=== PATIENT | female | born 1995 | race Caucasian/White ===

== ENCOUNTER 2017-09-28 22:42 | Emergency (ER) | payer OTHER, SELFPAY ==
[2017-09-29 00:02] LABS: Absolute Lymphocytes (CBC) 2.1 K/uL (0.7-4.9); Absolute Monocytes 0.4 K/uL (0.1-1.3); Absolute Neutrophil 4.7 K/uL (1.8-8.0); Eosinophils % 5.5 % (0-4.4); Hematocrit 39.3 % (36.0-45.0); Lymphocytes % 27.4 % (15.3-44.8); MCH 26.7 pg (27.0-35.0); MCV 81.9 fL (80-100); MPV 9.9 fL (7.6-11.3); Monocytes % 5.2 % (3.3-12.3)
[2017-09-29 00:17] LABS: Potassium 3.7 mEq/L (3.6-5.0)
[2017-09-29 00:59] LABS: HCG, Quantitative 610.4 mIU/mL (<5)
--- NOTE | 2017-09-29 02:37 | EDPHYS ---
Physician Documentation [facility] Name: Rehana Shaffer Age: 21 yrs Sex: Female : 1995 Arrival Date: 09/28/2017 Time: 22:46 Bed 24 Private MD: ED Physician Leonides Wong HPI: 09/28 23:07 This 21 yrs old Female presents to ER via Unassigned with complaints of ma2 Abdominal Cramping. 23:07 The patient presents to the emergency department with abdominal pain, of the suprapubic ma2 area, right lower quadrant and left lower quadrant, that started today, described as. The estimated gestational age is 5 weeks. course: care: none. Associated signs and symptoms: Pertinent negatives: chest pain, dysuria, nausea, shortness of breath, vaginal bleeding, vaginal discharge, vomiting. The patient has experienced similar episodes in the past. 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 - Social history:: Patient uses Patient/guardian denies using alcohol, street drugs, The patient lives with family, Smoking status: Patient/guardian denies using tobacco, Patient/guardian denies using alcohol, street drugs. ROS: 23:07 Constitutional: Negative for fever, chills, and weight loss. ma2 23:07 Abdomen/GI: Positive for abdominal pain. 23:07 All other systems are negative. Exam: 23:07 Constitutional: This is a well developed, well nourished patient who is awake, alert, ma2 and in no acute distress. Neck: Trachea midline, no thyromegaly or masses palpated, and no cervical lymphadenopathy. Supple, full range of motion without nuchal rigidity, or vertebral point tenderness. No Meningismus. Chest/axilla: Normal chest wall appearance and motion. Nontender with no deformity. No lesions are appreciated. Cardiovascular: Regular rate and rhythm with a normal S1 and S2. No gallops, murmurs, or rubs. Normal PMI, no JVD. No pulse deficits. Respiratory: Lungs have equal breath sounds bilaterally, clear to auscultation and percussion. No rales, rhonchi or wheezes noted. No increased work of breathing, no retractions or nasal flaring. Abdomen/GI: Soft, non-tender, with normal bowel sounds. No distension or tympany. No guarding or rebound. No evidence of tenderness throughout. Vital Signs: 23:09 BP 96 / 68; Pulse 93; Resp 14; Temp 98.0(O); Pulse Ox 100% on R/A; Weight 86.18 kg (R); ao Height 5 ft. 2 in. (157.48 cm); Pain 0/10; 23:42 Pulse 86; Resp 18; Pulse Ox 100% ; tl3 09/29 01:01 BP 101 / 62; Pulse 87; Resp 18; Pulse Ox 100% on R/A; tl3 02:15 BP 109 / 60; Pulse 78; Resp 17; Pulse Ox 100% on R/A; rk2 09/28 23:09 Body Mass Index 34.75 (86.18 kg, 157.48 cm) ao MDM: 09/28 22:58 Patient medically screened. ma2 23:07 Differential diagnosis: delivery of , ectopic , . ma2 09/29 02:33 Data reviewed: vital signs, nurses notes, EMS record, lab test result(s), radiologic ma2 studies. Test interpretation: by ED physician or midlevel provider: ECG, plain radiologic studies. Counseling: I had a detailed discussion with the patient and/or guardian regarding: the historical points, exam findings, and any diagnostic results supporting the discharge/admit diagnosis, the presence of at least one elevated blood pressure reading (>120/80) during this emergency department visit, the need for outpatient follow up. Medical screen evaluation completed. EMTALA emergency medical condition absent. 02:33 ED course: US showing single intra uterine sac no pole no definite IUP, no ma2 adnexal cysts or masses, no UTI . ED course: will need 48 hours bhcg . 09/28 23:07 Order name: Quantitative Hcg; Complete Time: 01:48 ma2 09/28 23:07 Order name: Abo/rh Typing; Complete Time: :48 ma2 09/28 23:07 Order name: Basic Metabolic Panel; Complete Time: 01:48 sd2 09/28 23:07 Order name: CBC with Diff; Complete Time: 00:04 sd2 09/28 23:58 Order name: Urine Dipstick--Ancillary (enter results) [facility] 09/28 23:07 Order name: Urine Test (obtain specimen); Complete Time: 00:24 sd2 09/28 23:07 Order name: IV Saline Lock; Complete Time: 00:24 sd2 09/28 23:07 Order name: Labs collected and sent; Complete Time: 00:24 ma2 09/28 23:58 Order name: Urine --Ancillary (enter results) [facility] 09/29 01:46 Order name: Transvaginal OB ED[facility] 09/28 23:07 Order name: NPO; Complete Time: 00:24 sd2 09/28 23:07 Order name: Urine Dipstick-Ancillary (obtain specimen); Complete Time: 00:24 ma2 Administered Medications: No medications were administered Disposition: 09/29/17 02:36 Discharged to Home. Impression: Abdominal and pelvic pain. - Condition is Stable. - Medication Reconciliation Form, Thank You Letter, Antibiotic Education, Prescription Opioid Use form. - Follow up: Private Physician; When: 48 Hours; Reason: Continuance of care. - Problem is new. - Symptoms are unchanged. - Notes: follow up with your doctor in 2 days for blood test, serial HCG, to rule out ectopic Signatures: Dispatcher [employer] [facility] Gamaliel Gaona RN Leonides Sanchez MD MD ma2 Carley Kay RN RN rk2 Corrections: (The following items were deleted from the chart) 01:47 00:50 OB Complete+US.RAD.BRZ ordered. [facility] 02:48 02:36 09/29/2017 02:36 Discharged to Home. Impression: Abdominal and pelvic pain. rk2 Condition is Stable. Forms are Medication Reconciliation Form, Thank You Letter, Antibiotic Education, Prescription Opioid Use. Follow up: Private Physician; When: 48 Hours; Reason: Continuance of care. Problem is new. Symptoms are unchanged. ma2
--- NOTE | 2017-09-29 02:37 | ER ---
Nurse's Notes [facility] Name: Rehana Shaffer Age: 21 yrs Sex: Female : 1995 Arrival Date: 09/28/2017 Time: 22:46 Bed 24 Private MD: Diagnosis: Abdominal and pelvic pain Presentation: 09/28 23:06 Presenting complaint: Patient states: "I had done two test and they are ao positive. My last period was 08/21/2017. Today I started cramping like before when I had a miscarriage." Patient denies vaginal discharge or bleeding. Transition of care: patient was not received from another setting of care. Onset of symptoms is unknown. Initial Sepsis Screen: Does the patient meet any 2 criteria? No. Patient's initial sepsis screen is negative. Does the patient have a suspected source of infection? No. Patient's initial sepsis screen is negative. Care prior to arrival: None. 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 - Social history:: Patient uses Patient/guardian denies using alcohol, street drugs, The patient lives with family, Smoking status: Patient/guardian denies using tobacco, Patient/guardian denies using alcohol, street drugs. Screenin:18 Abuse screen: Denies threats or abuse. Nutritional screening: No deficits noted. tl3 Tuberculosis screening: No symptoms or risk factors identified. Fall Risk None identified. Assessment: 23:18 General: Appears in no apparent distress. comfortable, well groomed, well developed, tl3 well nourished, Behavior is calm, cooperative, appropriate for age. Pain: Denies pain. Neuro: Level of Consciousness is awake, alert, obeys commands, Oriented to person, place, time, situation, Appropriate for age. Cardiovascular: No deficits noted. Heart tones S1 S2 present Patient's skin is warm and dry. Respiratory: Airway is patent Trachea midline Respiratory effort is even, unlabored, Respiratory pattern is regular, symmetrical, Breath sounds are clear bilaterally. GI: Bowel sounds present X 4 quads. Abd is soft and non tender. : Urine is clear. EENT: No signs and/or symptoms were reported regarding the EENT system. Derm: No signs and/or symptoms reported regarding the dermatologic system. Musculoskeletal: No signs and/or symptoms reported regarding the musculoskeletal system. 23:42 Reassessment: Patient appears in no apparent distress at this time. No changes from tl3 previously documented assessment. Patient and/or family updated on plan of care and expected duration. Pain level reassessed. Patient is alert, oriented x 3, equal unlabored respirations, skin warm/dry/pink. 09/29 01:01 Reassessment: Patient appears in no apparent distress at this time. No changes from tl3 previously documented assessment. Patient and/or family updated on plan of care and expected duration. Pain level reassessed. Patient is alert, oriented x 3, equal unlabored respirations, skin warm/dry/pink. pt in n distress, awaiting ultra sound. Vital Signs: 09/28 23:09 BP 96 / 68; Pulse 93; Resp 14; Temp 98.0(O); Pulse Ox 100% on R/A; Weight 86.18 kg (R); ao Height 5 ft. 2 in. (157.48 cm); Pain 0/10; 23:42 Pulse 86; Resp 18; Pulse Ox 100% ; tl3 09/29 01:01 BP 101 / 62; Pulse 87; Resp 18; Pulse Ox 100% on R/A; tl3 02:15 BP 109 / 60; Pulse 78; Resp 17; Pulse Ox 100% on R/A; rk2 09/28 23:09 Body Mass Index 34.75 (86.18 kg, 157.48 cm) ao ED Course: 09/28 22:46 Patient arrived in ED. ds1 22:58 Leonides Wong MD is Attending Physician. ma2 23:08 Triage completed. ao 23:08 Arm band placed on right wrist. Patient placed in an exam room, on a stretcher, on ao tool liaison, on pulse oximetry, Patient notified of wait time. 23:18 Jeny Amezquita, DOTTY is Primary Nurse. tl3 23:18 No apparent distress. Resting quietly. Awaiting lab results. tl3 23:18 Patient has correct armband on for positive identification. Bed in low position. Call tl3 light in reach. Side rails up X 1. Pulse ox on. NIBP on. 23:18 No provider procedures requiring assistance completed. tl3 23:42 Inserted saline lock: 20 gauge in left forearm, using aseptic technique. tl3 09/29 00:24 Urine Dipstick--Ancillary (enter results) Sent. tl3 00:24 Urine --Ancillary (enter results) Sent. tl3 02:33 Transvaginal OB Sent. rk2 02:34 Ultrasound completed. Patient tolerated well. Notified ED Physician Judith. sg3 02:37 Transvaginal OB In Process Unspecified. EDMS 02:48 IV discontinued. rk2 Administered Medications: No medications were administered Outcome: 02:36 Discharge ordered by . ma2 02:47 Discharged to home ambulatory. rk2 02:47 Condition: good 02:47 Discharge instructions given to patient. 02:48 Patient left the ED. rk2 Signatures: Dispatcher [employer] EDKY Stefanie Booth ds1 Gamaliel Gaona, RN RN Thania Jean-Baptiste sg3 Leonides Wong MD MD ma2 Carley Kay RN RN rk2 Jeny Amezquita RN RN tl3
[2017-09-29 03:01] VITALS: TEMP 98; O2SAT 100
[2017-09-29 03:05] VITALS: BP 109/60
--- NOTE | 2017-09-29 12:25 | RAD REPORT ---
EXAM DESCRIPTION: US - Transvaginal OB - 09/29/2017 2:37 am CLINICAL HISTORY: Pelvic pain. COMPARISON: None. FINDINGS: The uterus is normal in size, shape and echotexture. Endometrium is thickened with a tiny cystic area in the fundal endometrium measuring 5 mm. This may represent a very early IUP. Both ovaries are normal in size, shape and echotexture. The right ovary measures 3.2 x 2.7 cm. The left ovary measures 3.5 x 2.4 cm. No ovarian or parovarian lesions. No adnexal masses. Normal Doppler blood flow was demonstrated to both ovaries. IMPRESSION: Small gestational sac is likely present within the endometrial fundus.Advise a follow-up ultrasound in 10-12 days.
== END 2017-09-29 02:48 | disposition home or self-care (01) ==
LOC: ER 22:42
DX: R10.2 Pelvic and perineal pain (principal); Z88.0 Allergy status to penicillin; Z88.8 Allergy status to other drugs, medicaments and biological substances; Z91.040 Latex allergy status
CPT/HCPCS: 36415; 76817; 80048; 84702; 85025; 86900; 86901; 99284

== ENCOUNTER 2018-12-05 21:42 | Emergency (ER) | payer OTHER, SELFPAY ==
--- NOTE | 2018-12-06 00:28 | ER ---
Nurse's Notes [facility] Name: Rehana Arnett Age: 23 yrs Sex: Female : 1995 Arrival Date: 12/05/2018 Time: 21:47 Bed 8 Private MD: Diagnosis: Otitis externa in other diseases classified elsewhere, left ear Presentation: 12/05 22:14 Presenting complaint: Patient states: "It started out as an ear infection, I had a aj1 panic attack that lasted 2 and a half hours, and I think I might be , I have that kenneth in my arm but my belly is swelling and my boobs are bigger" Patient states that she has been taking tests and they have been negative. Reports pain to the both ears for the past 3 days, denies fever. Transition of care: patient was not received from another setting of care. Onset of symptoms was December 05, 2018. Risk Assessment: Do you want to hurt yourself or someone else? Patient reports no desire to harm self or others. Initial Sepsis Screen: Does the patient meet any 2 criteria? HR > 90 bpm. No. Patient's initial sepsis screen is negative. Does the patient have a suspected source of infection? No. Patient's initial sepsis screen is negative. Care prior to arrival: None. 22:14 Method Of Arrival: Ambulatory aj1 22:14 Acuity: GERMANIA 4 aj1 Triage Assessment: 22:17 General: Appears in no apparent distress. uncomfortable, Behavior is calm, cooperative, aj1 appropriate for age. Pain: Complains of pain in right ear and left ear Pain currently is 4 out of 10 on a pain scale. EENT: Reports bilateral ear pain. Neuro: Level of Consciousness is awake, alert, obeys commands. Cardiovascular: Patient's skin is warm and dry. Respiratory: Airway is patent Respiratory effort is even, unlabored, Respiratory pattern is regular, symmetrical. 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 - Social history:: Smoking status: Patient/guardian denies using tobacco. - Ebola Screening: : Patient denies travel to an Ebola-affected area in the 21 days before illness onset. Screenin:06 Abuse screen: Denies threats or abuse. Nutritional screening: No deficits noted. jd3 Tuberculosis screening: No symptoms or risk factors identified. Fall Risk Ambulatory Aid- None/Bed Rest/Nurse Assist (0 pts). Gait- Normal/Bed Rest/Wheelchair (0 pts) Mental Status- Oriented to own ability (0 pts). Total Patel Fall Scale indicates No Risk (0-24 pts). Assessment: 23:03 General: Appears in no apparent distress. uncomfortable, Behavior is calm, cooperative, jd3 appropriate for age. Pain: Complains of pain in left ear Pain does not radiate. Quality of pain is described as aching. Neuro: Level of Consciousness is awake, alert, obeys commands, Oriented to person, place, time, situation. Cardiovascular: Capillary refill < 3 seconds Patient's skin is warm and dry. Respiratory: Airway is patent Respiratory effort is even, unlabored, Respiratory pattern is regular, symmetrical, Denies cough, shortness of breath. GI: Reports nausea, recent weight gain. : No signs and/or symptoms were reported regarding the genitourinary system. EENT: Ear canal w/ drainage noted from left ear Reports pain in left ear. Derm: Skin is intact, Skin is dry, Skin is normal, Skin temperature is warm. Musculoskeletal: Circulation, motion, and sensation intact. Range of motion: intact in all extremities. 12/06 00:00 Reassessment: Patient appears in no apparent distress at this time. No changes from jd3 previously documented assessment. Patient and/or family updated on plan of care and expected duration. Pain level reassessed. Patient is alert, oriented x 3, equal unlabored respirations, skin warm/dry/pink. awaiting results and disposition. 00:29 Reassessment: Patient appears in no apparent distress at this time. Patient and/or jd3 family updated on plan of care and expected duration. Pain level reassessed. Patient is alert, oriented x 3, equal unlabored respirations, skin warm/dry/pink. reported understanding of discharge instructions. Vital Signs: 12/05 22:17 BP 127 / 68; Pulse 88; Resp 18; Temp 98.3; Pulse Ox 100% on R/A; Weight 86.18 kg (R); aj1 Height 5 ft. 2 in. (157.48 cm) (R); Pain 4/10; 12/06 00:30 Pulse 87; Resp 16 S; Pulse Ox 100% on R/A; Pain 4/10; jd3 12/05 22:17 Body Mass Index 34.75 (86.18 kg, 157.48 cm) aj1 ED Course: 12/05 21:47 Patient arrived in ED. es 22:16 Triage completed. aj1 22:17 Arm band placed on Patient placed in an exam room. aj1 22:22 Saurav Randall PA is PHCP. cp 22:22 Carlos Graves MD is Attending Physician. cp 22:25 Jose Phelps, RN is Primary Nurse. jd3 23:02 Strep Sent. jd3 23:07 Patient has correct armband on for positive identification. Bed in low position. Call jd3 light in reach. Side rails up X 1. 12/06 00:29 No provider procedures requiring assistance completed. Patient did not have IV access jd3 during this emergency room visit. Administered Medications: No medications were administered Outcome: 00:23 Discharge ordered by MD. cp 00:29 Discharged to home ambulatory, with family. jd3 00:29 Condition: stable 00:29 Discharge instructions given to patient, family, Instructed on discharge instructions, follow up and referral plans. medication usage, Demonstrated understanding of instructions, follow-up care, medications, Prescriptions given X 1. 00:30 Patient left the ED. jd3 Signatures: Makenzie Nevarez, RN RN aj1 Lindsey Steward Saurav Randall PA PA Jose Padilla, RN RN jd3
--- NOTE | 2018-12-06 00:29 | EDPHYS ---
Physician Documentation [facility] Name: Rehana Arnett Age: 23 yrs Sex: Female : 1995 Arrival Date: 12/05/2018 Time: 21:47 Bed 8 Private MD: ED Physician Carlos Graves HPI: 12/05 22:50 This 23 yrs old Female presents to ER via Ambulatory with complaints of Ear cp Pain. 22:50 The patient presents with pain, that is acute. The complaints affect the left ear. cp 22:50 Onset: The symptoms/episode began/occurred 3 day(s) ago. cp 22:50 Associated signs and symptoms: Pertinent positives: sore throat, Pertinent negatives: cp cough, rhinorrhea, sinus trouble. Severity of symptoms: in the emergency department the symptoms are unchanged despite home interventions. Patient concerned about possibility of being and wound like test. 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 - Social history:: Smoking status: Patient/guardian denies using tobacco. - Ebola Screening: : Patient denies travel to an Ebola-affected area in the 21 days before illness onset. ROS: 23:00 Constitutional: Negative for chills, fever, poor PO intake. cp 23:00 Eyes: Negative for injury, pain, redness, and discharge. cp 23:00 ENT: Positive for ear pain, sore throat, Negative for drainage from ear(s), sinus congestion, sinus pain, difficulty swallowing, difficulty handling secretions. 23:00 Neck: Negative for pain with movement, pain at rest, stiffness. 23:00 Respiratory: Negative for cough, shortness of breath, wheezing. 23:00 Abdomen/GI: Negative for vomiting, diarrhea, constipation. 23:00 Skin: Negative for rash. 23:00 Neuro: Negative for altered mental status, headache, weakness. 23:00 All other systems are negative. Exam: 23:05 Constitutional: The patient appears in no acute distress, alert, awake, non-toxic, well cp developed, well nourished. 23:05 Head/Face: Normocephalic, atraumatic. cp 23:05 Eyes: Periorbital structures: appear normal, Conjunctiva: normal, no exudate, no injection, Lids and lashes: appear normal, bilaterally. 23:05 ENT: External ear(s): pain with movement, that is mild, of the left ear canal, Ear canal(s): swelling, that is minimal, of the left canal, TM's: dullness, bilaterally, Examination of the other ear shows no obvious abnormality, Nose: is normal, Mouth: Lips: moist, Oral mucosa: pink and intact, moist, Posterior pharynx: Airway: no evidence of obstruction, patent, Tonsils: no enlargement, no exudate, swelling, is not appreciated, erythema, that is mild, exudate, is not appreciated. 23:05 Neck: ROM/movement: is normal, is supple, without pain, no range of motions limitations, no meningismus, no nuchal rigidity. 23:05 Chest/axilla: Inspection: normal. 23:05 Cardiovascular: Rate: normal. 23:05 Respiratory: the patient does not display signs of respiratory distress, Respirations: normal, no use of accessory muscles, no retractions, no splinting, no tachypnea, labored breathing, is not present. 23:05 Skin: no rash present. Vital Signs: 22:17 BP 127 / 68; Pulse 88; Resp 18; Temp 98.3; Pulse Ox 100% on R/A; Weight 86.18 kg (R); aj1 Height 5 ft. 2 in. (157.48 cm) (R); Pain 4/10; 12/06 00:30 Pulse 87; Resp 16 S; Pulse Ox 100% on R/A; Pain 4/10; jd3 12/05 22:17 Body Mass Index 34.75 (86.18 kg, 157.48 cm) aj1 MDM: 12/05 22:22 Patient medically screened. cp 23:00 Differential diagnosis: otitis media, otitis externa, ruptured TM, sinusitis, strep cp throat. 12/06 00:22 Data reviewed: vital signs, nurses notes, lab test result(s). cp 00:22 Counseling: I had a detailed discussion with the patient and/or guardian regarding: the cp historical points, exam findings, and any diagnostic results supporting the discharge/admit diagnosis, lab results, to return to the emergency department if symptoms worsen or persist or if there are any questions or concerns that arise at home. 12/05 22:56 Order name: Strep cp 12/05 23:05 Order name: Urine Dipstick--Ancillary (enter results) [facility] 12/05 22:45 Order name: Urine Dipstick-Ancillary (obtain specimen); Complete Time: 22:59 [facility] 12/05 22:45 Order name: Urine Test (obtain specimen); Complete Time: 22:59 [facility] 12/05 23:05 Order name: Urine --Ancillary (enter results) [facility] 12/06 00:06 Order name: Throat Culture EDMS Administered Medications: No medications were administered Disposition: 12/06/18 00:23 Discharged to Home. Impression: Otitis externa in other diseases classified elsewhere, left ear. - Condition is Stable. - Discharge Instructions: Otitis Externa. - Prescriptions for Cortisporin- TC 3.3-3-10-0.5 mg/mL Otic Suspension - instill 4 drop by OTIC route every 6 hours; 1 bottle. - Medication Reconciliation Form, Thank You Letter, Antibiotic Education, Prescription Opioid Use form. - Follow up: Private Physician; When: 2 - 3 days; Reason: Worsening of condition. - Problem is new. - Symptoms have improved. Addendum: 12/07/2018 10:00 Co-signature as Attending Physician, Carlos Graves MD I agree with the assessment and k dr plan of care. Signatures: Dispatcher [employer] EDMS Makenzie Nevarez RN RN aj1 Carlos Graves MD MD kdr Saurav Randall PA PA Jose Padilla RN RN jd3 Corrections: (The following items were deleted from the chart) 12/06 00:30 00:23 12/06/2018 00:23 Discharged to Home. Impression: Otitis externa in other diseases jd3 classified elsewhere, left ear. Condition is Stable. Forms are Medication Reconciliation Form, Thank You Letter, Antibiotic Education, Prescription Opioid Use. Follow up: Private Physician; When: 2 - 3 days; Reason: Worsening of condition. Problem is new. Symptoms have improved. cp
[2018-12-06 02:05] LABS: Urine Blood NEGATIVE (NEG); Urine Glucose NEGATIVE (NEG); Urine Protein NEGATIVE (NEG); Urine Specific Gravity 1.025 (1.005-1.030); Urine pH 5.5 (5.0-7.0)
[2018-12-06 02:37] VITALS: BP 127/68; TEMP 98.3; O2SAT 100
== END 2018-12-06 00:30 | disposition home or self-care (01) ==
LOC: ER 21:42
DX: H60.92 Unspecified otitis externa, left ear (principal); Z88.1 Allergy status to other antibiotic agents; Z91.040 Latex allergy status; Z91.048 Other nonmedicinal substance allergy status
CPT/HCPCS: 81003; 81025; 87070; 87081; 99283

== ENCOUNTER 2019-03-23 18:16 | Emergency (ER) | payer SELFPAY ==
--- NOTE | 2019-03-23 19:43 | EDPHYS ---
Physician Documentation [facility] Name: Rehana Cardona Age: 23 yrs Sex: Female : 1995 Arrival Date: 03/23/2019 Time: 18:18 Bed 10 Private MD: ED Physician Giorgi Saenz HPI: 03/23 19:03 This 23 yrs old Female presents to ER via Ambulatory with complaints of snw Fever, Cough, Sore Throat. 19:03 The patient reports fever, not measured (subjective). Onset: The symptoms/episode snw began/occurred suddenly, 3 day(s) ago, and became persistent. Associated signs and symptoms: Pertinent positives: sore throat. Severity of symptoms: At their worst the symptoms were moderate. It is unknown whether or not the patient has had similar symptoms in the past. It is unknown whether or not the patient has recently seen a physician. 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 - Social history:: Smoking status: Patient/guardian denies using tobacco. - Ebola Screening: : Patient denies travel to an Ebola-affected area in the 21 days before illness onset. ROS: 19:02 Constitutional: Negative for fever, chills, and weight loss, Eyes: Negative for injury, snw pain, redness, and discharge, Neck: Negative for injury, pain, and swelling, Cardiovascular: Negative for chest pain, palpitations, and edema, Respiratory: Negative for shortness of breath, cough, wheezing, and pleuritic chest pain, Abdomen/GI: Negative for abdominal pain, nausea, vomiting, diarrhea, and constipation, Back: Negative for injury and pain, : Negative for injury, bleeding, discharge, and swelling, MS/Extremity: Negative for injury and deformity, Skin: Negative for injury, rash, and discoloration, Neuro: Negative for headache, weakness, numbness, tingling, and seizure, Psych: Negative for depression, anxiety, suicide ideation, homicidal ideation, and hallucinations. 19:02 ENT: Positive for sinus congestion, sore throat. Exam: 19:01 Constitutional: This is a well developed, well nourished patient who is awake, alert, snw and in no acute distress. Head/Face: Normocephalic, atraumatic. Eyes: Pupils equal round and reactive to light, extra-ocular motions intact. Lids and lashes normal. Conjunctiva and sclera are non-icteric and not injected. Cornea within normal limits. Periorbital areas with no swelling, redness, or edema. Neck: Trachea midline, no thyromegaly or masses palpated, and no cervical lymphadenopathy. Supple, full range of motion without nuchal rigidity, or vertebral point tenderness. No Meningismus. Chest/axilla: Normal chest wall appearance and motion. Nontender with no deformity. No lesions are appreciated. Cardiovascular: Regular rate and rhythm with a normal S1 and S2. No gallops, murmurs, or rubs. Normal PMI, no JVD. No pulse deficits. Respiratory: Lungs have equal breath sounds bilaterally, clear to auscultation and percussion. No rales, rhonchi or wheezes noted. No increased work of breathing, no retractions or nasal flaring. Abdomen/GI: Soft, non-tender, with normal bowel sounds. No distension or tympany. No guarding or rebound. No evidence of tenderness throughout. Back: No spinal tenderness. No costovertebral tenderness. Full range of motion. Skin: Warm, dry with normal turgor. Normal color with no rashes, no lesions, and no evidence of cellulitis. MS/ Extremity: Pulses equal, no cyanosis. Neurovascular intact. Full, normal range of motion. Neuro: Awake and alert, GCS 15, oriented to person, place, time, and situation. Cranial nerves II-XII grossly intact. Motor strength 5/5 in all extremities. Sensory grossly intact. Cerebellar exam normal. Normal gait. Psych: Awake, alert, with orientation to person, place and time. Behavior, mood, and affect are within normal limits. 19:01 ENT: External ear(s): are unremarkable, Ear canal(s): are normal, TM's: dullness, bilaterally, Nose: Nasal mucosa: edematous, Mouth: is normal, Posterior pharynx: erythema, that is mild, Voice: is normal. Vital Signs: 18:37 BP 122 / 73; Pulse 95; Resp 20; Temp 98.2; Pulse Ox 99% on R/A; Weight 90.72 kg (R); aj1 Height 5 ft. 2 in. (157.48 cm) (R); 19:50 BP 119 / 68; Pulse 92; Resp 17 S; Temp 98.2(O); Pulse Ox 100% on R/A; ca1 20:44 BP 117 / 71; Pulse 89; Resp 16 S; Temp 97.3(TE); Pulse Ox 100% on R/A; ca1 18:37 Body Mass Index 36.58 (90.72 kg, 157.48 cm) aj1 MDM: 18:47 Patient medically screened. snw 19:46 Data reviewed: vital signs, nurses notes. Data interpreted: Pulse oximetry: on room air snw is 99 %. Interpretation: normal. Counseling: I had a detailed discussion with the patient and/or guardian regarding: the historical points, exam findings, and any diagnostic results supporting the discharge/admit diagnosis, lab results, the need for outpatient follow up, for definitive care, to return to the emergency department if symptoms worsen or persist or if there are any questions or concerns that arise at home. Special discussion: Based on the history and exam findings, there is no indication for further emergent testing or inpatient evaluation. I discussed with the patient/guardian the need to see the primary care provider for further evaluation of the symptoms. 03/23 18:39 Order name: Strep; Complete Time: 19:23 snw 03/23 18:39 Order name: Flu; Complete Time: 19:31 snw 03/23 19:21 Order name: Throat Culture EDMS Administered Medications: 19:50 Drug: Decadron 8 mg Route: PO; ca1 20:32 Follow up: Response: No adverse reaction ca1 19:52 Drug: Tussionex Pennkinetic ER 5 ml Route: PO; ca1 20:32 Follow up: Response: No adverse reaction ca1 Disposition: 21:26 Co-signature as Attending Physician, Giorgi aSenz MD I agree with the assessment and wa plan of care. Disposition: 03/23/19 19:42 Discharged to Home. Impression: Acute upper respiratory infection, unspecified, Acute pharyngitis. - Condition is Stable. - Discharge Instructions: Fever, Adult, Pharyngitis, Upper Respiratory Infection, Adult, Rehydration, Adult. - Prescriptions for Tessalon Perles 100 mg Oral Capsule - take 1 capsule by ORAL route every 8 hours As needed; 15 capsule. - Medication Reconciliation Form, Thank You Letter, Antibiotic Education, Prescription Opioid Use form. - Follow up: Private Physician; When: 2 - 3 days; Reason: Recheck today's complaints, Continuance of care, Re-evaluation by your physician. Follow up: Emergency Department; When: As needed; Reason: Worsening of condition. Signatures: Dispatcher [employer] EDMS Makenzie Nevarez RN RN aj1 Lisa Ivan, REMEDIAL READING TEACHER-C REMEDIAL READING TEACHER-Csnw Giorgi Saenz MD MD wv Lory Mendoza RN RN ca1 Corrections: (The following items were deleted from the chart) 20:45 19:42 03/23/2019 19:42 Discharged to Home. Impression: Acute upper respiratory ca1 infection, unspecified; Acute pharyngitis. Condition is Stable. Forms are Medication Reconciliation Form, Thank You Letter, Antibiotic Education, Prescription Opioid Use. Follow up: Private Physician; When: 2 - 3 days; Reason: Recheck today's complaints, Continuance of care, Re-evaluation by your physician. Follow up: Emergency Department; When: As needed; Reason: Worsening of condition. snw
--- NOTE | 2019-03-23 19:43 | ER ---
Nurse's Notes [facility] Name: Rehana Cardona Age: 23 yrs Sex: Female : 1995 Arrival Date: 03/23/2019 Time: 18:18 Bed 10 Private MD: Diagnosis: Acute upper respiratory infection, unspecified;Acute pharyngitis Presentation: 03/23 18:35 Presenting complaint: Patient states: Sore throat, fever for the past 3 days. TMax aj1 99.6. Transition of care: patient was not received from another setting of care. Onset of symptoms was March 19, 2019. Risk Assessment: Do you want to hurt yourself or someone else? Patient reports no desire to harm self or others. Initial Sepsis Screen: Does the patient meet any 2 criteria? No. Patient's initial sepsis screen is negative. Does the patient have a suspected source of infection? No. Patient's initial sepsis screen is negative. Care prior to arrival: None. 18:35 Method Of Arrival: Ambulatory aj1 18:35 Acuity: GERMANIA 4 aj1 Triage Assessment: 18:37 General: Appears in no apparent distress. comfortable, Behavior is calm, cooperative, aj1 appropriate for age. Pain: Complains of pain in left aspect of posterior pharynx and right aspect of posterior pharynx. EENT: Reports sore throat. Neuro: Level of Consciousness is awake, alert, obeys commands, Oriented to person, place, time, situation. Cardiovascular: Patient's skin is warm and dry. Respiratory: Airway is patent Respiratory effort is even, unlabored, Respiratory pattern is regular, symmetrical. 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 - Social history:: Smoking status: Patient/guardian denies using tobacco. - Ebola Screening: : Patient denies travel to an Ebola-affected area in the 21 days before illness onset. Screenin:50 Abuse screen: Denies threats or abuse. Denies injuries from another. Nutritional ca1 screening: No deficits noted. Tuberculosis screening: No symptoms or risk factors identified. Fall Risk None identified. Assessment: 19:50 General: Appears in no apparent distress. comfortable, Behavior is calm, cooperative, ca1 appropriate for age. General: Reports fever for 12-24 hours. Pain: Denies pain. Neuro: Level of Consciousness is awake, alert, obeys commands, Oriented to person, place, time, situation, Appropriate for age. Respiratory: Airway is patent Respiratory effort is even, unlabored, Respiratory pattern is regular, symmetrical, Breath sounds are clear bilaterally. EENT: Throat is pink. Derm: Skin is intact, is healthy with good turgor, Skin is pink, warm \T\ dry. Musculoskeletal: Circulation, motion, and sensation intact. Capillary refill < 3 seconds, Range of motion: intact in all extremities. 20:44 Reassessment: Patient appears in no apparent distress at this time. Patient is alert, ca1 oriented x 3, equal unlabored respirations, skin warm/dry/pink. Vital Signs: 18:37 BP 122 / 73; Pulse 95; Resp 20; Temp 98.2; Pulse Ox 99% on R/A; Weight 90.72 kg (R); aj1 Height 5 ft. 2 in. (157.48 cm) (R); 19:50 BP 119 / 68; Pulse 92; Resp 17 S; Temp 98.2(O); Pulse Ox 100% on R/A; ca1 20:44 BP 117 / 71; Pulse 89; Resp 16 S; Temp 97.3(TE); Pulse Ox 100% on R/A; ca1 18:37 Body Mass Index 36.58 (90.72 kg, 157.48 cm) aj1 ED Course: 18:18 Patient arrived in ED. am2 18:36 Triage completed. aj1 18:37 Arm band placed on Patient placed in an exam room. aj1 18:39 Lisa Ivan FNP-C is [facility]. snw 18:39 Giorgi Saenz MD is Attending Physician. snw 18:45 Flu and/or RSV swab sent to lab. Strep swab sent to lab. lt1 18:45 Flu Sent. lt1 18:46 Strep Sent. lt1 19:50 Patient has correct armband on for positive identification. Bed in low position. Call ca1 light in reach. Side rails up X 1. 19:50 No provider procedures requiring assistance completed. Patient did not have IV access ca1 during this emergency room visit. 20:20 Lory Mendoza, RN is Primary Nurse. ca1 Administered Medications: 19:50 Drug: Decadron 8 mg Route: PO; ca1 20:32 Follow up: Response: No adverse reaction ca1 19:52 Drug: Tussionex Pennkinetic ER 5 ml Route: PO; ca1 20:32 Follow up: Response: No adverse reaction ca1 Outcome: 19:42 Discharge ordered by . sandra 20:44 Discharged to home ambulatory, with family. ca1 20:44 Condition: stable 20:44 Discharge instructions given to patient, Instructed on discharge instructions, follow up and referral plans. medication usage, Demonstrated understanding of instructions, follow-up care, medications, Prescriptions given X 1. 20:45 Patient left the ED. ca1 Signatures: Makenzie Nevarez RN RN aj1 Lisa Ivan, MAILROOM ASSISTANT-C MAILROOM ASSISTANT-Csnw Fay Potts am2 Lory Mendoza RN RN ca1 Maria Ines Simons lt1
[2019-03-23] MEDS ORDERED: HYDROCODONE/CHLORPHEN 5 ML/OSYR ONE (19:49)
[2019-03-23] MEDS ORDERED: dexAMETHasone 4 MG TAB ONE (19:50)
[2019-03-23 21:55] VITALS: O2SAT 100
[2019-03-23 21:57] VITALS: BP 117/71; TEMP 97.3
== END 2019-03-23 20:45 | disposition home or self-care (01) ==
LOC: ER 18:16
DX: J02.9 Acute pharyngitis, unspecified (principal); Z88.1 Allergy status to other antibiotic agents; Z88.8 Allergy status to other drugs, medicaments and biological substances; Z91.040 Latex allergy status; Z91.048 Other nonmedicinal substance allergy status
CPT/HCPCS: 87070; 87081; 87804; 99283; J8540

== ENCOUNTER 2021-01-13 21:26 | Emergency (ER) | payer SELFPAY ==
--- NOTE | 2021-01-13 23:56 | EDPHYS ---
Physician Documentation [facility] Name: Rehana Cardona Age: 25 yrs Sex: Female : 1995 Arrival Date: 01/13/2021 Time: 21:43 Bed Hall20 Private MD: ED Physician Jose Daniel Martino HPI: 01/13 23:54 This 25 yrs old Female presents to ER via Ambulatory with complaints of Cough.jmm 23:54 The patient or guardian reports cough. Onset: The symptoms/episode began/occurred jmm gradually, 2 day(s) ago. Modifying factors: The symptoms are alleviated by nothing, the symptoms are aggravated by nothing. Associated signs and symptoms: Pertinent negatives: fever. Historical: - Allergies: 21:59 Adhesives; em 21:59 Amoxicillin; em 21:59 Iodine; em 21:59 Latex, Natural Rubber; em - PMHx: 21:59 Asthma; em - PSHx: 21:59 None; em - Immunization history:: Client reports receiving the 2nd dose of the Covid vaccine. - Social history:: Smoking status: Patient denies any tobacco usage or history of. ROS: 23:54 Constitutional: Positive for body aches, chills. jmm 23:54 Respiratory: Positive for cough. 23:54 All other systems are negative. Exam: 23:54 Constitutional: This is a well developed, well nourished patient who is awake, alert, jmm and in no acute distress. Head/Face: atraumatic. Eyes: EOMI, no conjunctival erythema appreciated ENT: Moist Mucus Membranes Neck: Trachea midline, Supple Chest/axilla: Normal chest wall appearance and motion. Cardiovascular: Regular rate and rhythm. No edema appreciated Respiratory: Normal respirations, no respiratory distress appreciated Abdomen/GI: Non distended, soft Back: Normal ROM Skin: General appearance color normal MS/ Extremity: Moves all extremities, no obvious deformities appreciated, no edema noted to the lower extremities Neuro: Awake and alert, normal gait Psych: Behavior is normal, Mood is normal, Patient is cooperative and pleasant Vital Signs: 21:58 BP 127 / 92; Pulse 106; Resp 18; Temp 97.9; Pulse Ox 100% on R/A; Weight 104.33 kg; em Height 5 ft. 2 in. (157.48 cm); 21:58 Body Mass Index 42.07 (104.33 kg, 157.48 cm) em MDM: 22:34 Patient medically screened. [facility] 23:55 Data reviewed: vital signs, nurses notes. Counseling: I had a detailed discussion with baljit the patient and/or guardian regarding: the historical points, exam findings, and any diagnostic results supporting the discharge/admit diagnosis, the need for outpatient follow up, to return to the emergency department if symptoms worsen or persist or if there are any questions or concerns that arise at home. ED course: Patient is alert and nontoxic in appearance in the ER. I discussed all labs and imaging studies with the patient. Patient will follow up with their primary care provider. Patient understood and agrees with plan of care.. 01/13 22:23 Order name: COVID-19 : Document "Date of Symptom Onset" if Symptomatic. [facility] 01/13 23:43 Order name: SARS-COV-2 RT PCR; Complete Time: 00:04 EDMS Administered Medications: No medications were administered Disposition: 01/14 02:08 Co-signature as Attending Physician, Jose Daniel Martino MD I agree with the assessment and rn plan of care. Attestation: The patient's history, exam findings, diagnostics, and a summary of any interventions or procedures was reviewed in detail with Ruben RODAS. Disposition Summary: 01/13/21 23:56 Discharge Ordered Location: Home [facility] Condition: Stable [facility] Diagnosis - Acute upper respiratory infection, unspecified [facility] Followup: [facility] - With: Private Physician - When: 2 - 3 days - Reason: Recheck today's complaints, Continuance of care, Re-evaluation by your physician Discharge Instructions: - Discharge Summary Sheet [facility] - Upper Respiratory Infection, Pediatric [facility] Forms: - Medication Reconciliation Form [facility] - Thank You Letter jmm - Antibiotic Education jmm - Prescription Opioid Use jm - Work release form em Signatures: Dispatcher [employer] Ruben Putnam PA PA jmm Munoz, Edgar, RN RN em Jose Daniel Martino MD MD negative turner apprentice: (The following items were deleted from the chart) 01/13 22:47 22:24 CORONAVIRUS ordered. EDMS EDMS
--- NOTE | 2021-01-13 23:56 | ER ---
Nurse's Notes [facility] Name: Rehana Cardona Age: 25 yrs Sex: Female : 1995 Arrival Date: 01/13/2021 Time: 21:43 Bed Hall20 [facility] [place] MD: Diagnosis: Acute upper respiratory infection, unspecified Presentation: 01/13 21:58 Chief complaint: Patient states: cough and covid exposure. Coronavirus screen: Vaccine em status: Patient reports receiving the 2nd dose of the covid vaccine. Ebola Screen: Patient negative for fever greater than or equal to 101.5 degrees Fahrenheit, and additional compatible Ebola Virus Disease symptoms Patient denies exposure to infectious person. Patient denies travel to an Ebola-affected area in the 21 days before illness onset. No symptoms or risks identified at this time. Initial Sepsis Screen: Does the patient meet any 2 criteria? No. Patient's initial sepsis screen is negative. Does the patient have a suspected source of infection? No. Patient's initial sepsis screen is negative. Risk Assessment: Do you want to hurt yourself or someone else? Patient reports no desire to harm self or others. Onset of symptoms was January 13, 2021. 21:58 Method Of Arrival: Ambulatory em 21:58 Acuity: GERMANIA 4 em Historical: - Allergies: 21:59 Adhesives; em 21:59 Amoxicillin; em 21:59 Iodine; em 21:59 Latex, Natural Rubber; em - PMHx: 21:59 Asthma; em - PSHx: 21:59 None; em - Immunization history:: Client reports receiving the 2nd dose of the Covid vaccine. - Social history:: Smoking status: Patient denies any tobacco usage or history of. Screenin:27 Abuse screen: no s/s of abuse. Nutritional screening: No deficits noted. Tuberculosis zb screening: No symptoms or risk factors identified. Fall Risk None identified. Assessment: 22:27 General: Appears in no apparent distress. Behavior is calm, cooperative. Pain: Denies zb pain. Neuro: Level of Consciousness is awake, alert, obeys commands, Oriented to Appropriate for age. Cardiovascular: Patient's skin is warm and dry. Respiratory: Airway is patent Respiratory effort is even, unlabored, Respiratory pattern is regular, symmetrical. Derm: Skin is intact, is healthy with good turgor. Musculoskeletal: Range of motion: intact in all extremities. Vital Signs: 21:58 BP 127 / 92; Pulse 106; Resp 18; Temp 97.9; Pulse Ox 100% on R/A; Weight 104.33 kg; em Height 5 ft. 2 in. (157.48 cm); 21:58 Body Mass Index 42.07 (104.33 kg, 157.48 cm) em ED Course: 21:43 Patient arrived in ED. 21:59 Triage completed. em 21:59 Arm band placed on. em 22:12 Ruben Lee PA is PHCP. [facility] 22:12 Jose Daniel Martino MD is Attending Physician. [facility] 22:26 Cheryl Rashid, DOTTY is Primary Nurse. zb 22:36 Patient has correct armband on for positive identification. Placed in gown. Bed in low zb position. Door closed. Noise minimized. 01/14 00:18 No provider procedures requiring assistance completed. Patient did not have IV access zb during this emergency room visit. Administered Medications: No medications were administered Outcome: 01/13 23:56 Discharge ordered by . [facility] 01/14 00:18 Discharged to home ambulatory, with family. zb Condition: stable Discharge instructions given to patient, family, Instructed on discharge instructions, follow up and referral plans. Demonstrated understanding of instructions, follow-up care. 00:18 Patient left the ED. zb Signatures: Ruben Lee PA PA jmm Munoz, Edgar, RN RN Cheryl Rashid RN RN Mercedez Hernandez
[2021-01-14 00:34] VITALS: BP 127/92; TEMP 97.9; O2SAT 100
== END 2021-01-14 00:18 | disposition home or self-care (01) ==
LOC: ER 21:26
DX: J06.9 Acute upper respiratory infection, unspecified (principal); Z20.822 Contact with and (suspected) exposure to COVID-19; Z88.1 Allergy status to other antibiotic agents; Z91.040 Latex allergy status; Z91.048 Other nonmedicinal substance allergy status
CPT/HCPCS: 99281; U0003